=== PATIENT | female | born 1975 | race Caucasian/White ===

== ENCOUNTER → 2016-11-01 | Outpatient (CLI) | payer MEDICAID, BC ==
[2016-11-01 07:31] LABS: Basophils # (A) 0.1 k/uL (0-0.2); Basophils % (A) 1 %; CH 30.2; Eosinophils # (A) 0.1 k/uL (0-0.7); Eosinophils % (A) 1 %; HCT 44.5 % (34.0-46.0); HDW 2.49; HGB 14.3 gm/dL (11.4-16.0); Luc # (Auto) 0.17; Luc % (Auto) 3; Lymphocytes # (A) 2.4 k/uL (1.0-4.8); Lymphocytes % (A) 37 %; MCH 29.5 pg (25.0-35.0); MCHC 32.1 g/dL (31.0-37.0); MCV 91.8 fL (80.0-100.0); Mean Platelet Volume 7.7; Monocytes # (A) 0.5 k/uL (0-1.0); Monocytes % (A) 7 %; Neutrophils # (A) 3.3 k/uL (1.3-7.7); Neutrophils % (A) 51 %; RBC 4.85 m/uL (3.80-5.40); RDW 12.6 % (11.5-15.5); WBC 6.6 k/uL (3.8-10.6); WBC (Perox) 6.71
[2016-11-01 07:34] LABS: Anion Gap 11 mmol/L; Blood Urea Nitrogen 18 mg/dL (7-17); Carbon Dioxide 25 mmol/L (22-30); Chloride 105 mmol/L (98-107); Glucose 91 mg/dL (74-99); Non-African American GFR(MDRD) >60 (>60 ml/min/1.73 sqM); Potassium 4.7 mmol/L (3.5-5.1); Sodium 141 mmol/L (137-145)
== END | disposition home or self-care (01) ==
LOC: LABPAT 06:39
PROVIDERS: ATTEND Obstetrics & Gynecology
DX: Z01.812 Encounter for preprocedural laboratory examination (principal)
CPT/HCPCS: 36415; 80051; 82565; 82947; 84520; 85025; 86850; 86900; 86901; 87086

== ENCOUNTER 2016-11-10 06:31 | Day surgery (SDC) | payer MEDICAID, BC ==
[2016-11-01 11:34] VITALS: BMI 23.1
[~2016-11-10 06:31] MED LIST: DEXAMETHASONE SOD PHOSPHATE 10 MG/ML 1 ML VIAL IV ONE; FAMOTIDINE 20 MG/2 ML VIAL IV PRN; HYDROmorphone 1 MG/ML 1 ML SYRINGE IVP PRN; LACTATED RINGERS 1,000 ML IV SCH; LIDOCAINE 1% 20 ML VIAL (10MG/ML) FOR IV START INTRADERMA PRN; MIDAZOLAM 2 MG/2 ML VIAL IV PRN; ONDANSETRON 4 MG/2 ML VIAL IVP ONE; SCOPOLAMINE 1.5MG/72HR PATCH TRANSDERM ONE; ceFAZolin 2 GM in SODIUM CHLORIDE 0.9% 100 ML IVPB ONE
[2016-11-10] MEDS: LACTATED RINGERS 1,000 ML IV SCH ×2 (06:50→07:09)
[2016-11-10] MEDS ORDERED: SUCCINYLCHOLINE CHLORIDE 100 MG/5 ML SYR IV ONE (07:28)
[2016-11-10] MEDS ORDERED: MIDAZOLAM 2 MG/2 ML VIAL ONE (07:28)
[2016-11-10] MEDS ORDERED: KETOROLAC 30 MG/ML 1 ML VIAL ONE (07:28)
[2016-11-10] MEDS ORDERED: NEOSTIGMINE 1 MG/ML 10 ML VIAL ONE (07:28)
[2016-11-10] MEDS ORDERED: ROCURONIUM BROMIDE 10 MG/ML 10 ML VIAL IV ONE (07:28)
[2016-11-10] MEDS ORDERED: PROPOFOL 10 MG/ML 20 ML VIAL IV ONE (07:28)
[2016-11-10] MEDS ORDERED: HYDROmorphone (PF) 1 MG/ML ONE (07:28)
[2016-11-10] MEDS ORDERED: LIDOCAINE 1% INJ 10MG/ML (20 ML MDV) ONE (07:28)
[2016-11-10] MEDS ORDERED: fentaNYL (PF) 50 MCG/ML 2 ML AMP ONE (07:28)
[2016-11-10] MEDS ORDERED: GLYCOPYRROLATE 0.2 MG/ML 2 ML VIAL ONE (07:28)
[2016-11-10] MEDS ORDERED: BUPIVACAINE (PF) 0.25% 30 ML VIAL SQ ONE ×2 (07:52)
[2016-11-10] MEDS ORDERED: CELLULOSE,OXIDIZED 1 EACH EACH MISCELLANE ONE (08:36)
--- NOTE | 2016-11-10 09:12 | P.OP ---
Date of Procedure: 11/10/16 Preoperative Diagnosis: Left ovarian cyst and pelvic pain Postoperative Diagnosis: Same Procedure(s) Performed: Robotic-assisted laparoscopic bilateral salpingo-oophorectomy Anesthesia: DIANNA Surgeon: Anai Smith Estimated Blood Loss (ml): 20 IV fluids (ml): 800 Urine output (ml): 75 Pathology: other (Bilateral fallopian tubes and ovaries) Condition: stable Disposition: PACU Indications for Procedure: Persistent 4 cm left ovarian cyst consistent with endometrioma and chronic pelvic pain. Operative Findings: Approximately 5 cm left ovarian endometrioma adherent to the left posterior uterine cornua and left ovarian fossa. Normal-appearing right fallopian tube and ovary. Description of Procedure: After the patient and her family were met in the preoperative holding area and all questions were answered, she was taken to the operating room where anesthetic was administered without incident. She was in positioned, prepped and draped in the dorsal low lithotomy position. Positioning was tested in steep Trendelenburg position and was found to be adequate. A Rider catheter was then placed in the bladder and an acorn uterine manipulator was placed in the uterus. Attention was then turned to the abdomen. A 7 mm supraumbilical skin incision was made. The abdomen was grasped and elevated. The blade less optical trocar was utilized to introduce the camera under direct visualization to the peritoneal cavity without difficulty. The abdomen was insufflated with CO2 gas to a total filling pressure of 15 mm. All skin incisions were closed in a subcu cutaneous fashion with 4-0 Vicryl suture. Quarter percent Marcaine was infused into each incision for analgesia. Dressing was applied. The Rider catheter and acorn uterine manipulator were removed. No active vaginal bleeding was noted. The patient was awoken from anesthetic and transported to the recovery area in stable condition. The patient was then placed in steep Trendelenburg. Under direct visualization a right 7 mm robotic port was placed. A left lateral robotic 7 mm port as well as a 10 mm medical research assistant port were also placed under direct visualization. The bowel was swept out of the pelvis using a blunt probe. The above findings were noted. The rest the procedure was completed at the robotic console. Metzenbaum monopolar cautery instrument was in the #1 port and Yee bipolar graspers were in the #2 port. The left ovary was noted to be adherent to the left ovarian fossa and some bowel mesentery as well as the cornua of the uterus. This was dissected away using sharp and blunt dissection. Once the infundibulopelvic ligament was adequately visualized and was sequentially cauterized and cut. Further dissection of posterior adhesions was undertaken carefully and sharply. The adhesions to the cornual region of the uterus were sequentially cauterized and cut. This freed the entire specimen. There were adherent areas of ovarian tissue in the ovarian fossa which were delicately dissected away and removed. Attention was then turned to the right ovary. The right infundibulopelvic ligament was identified and was sequentially cauterized and cut adjacent to the ovary. The tubo-ovarian pedicle was then sequentially cauterized and cut thus freeing the right fallopian tube and ovary completely. The posterior cul-de- sac was then inspected and there were filmy adhesions noted these were sharply taken down. There were 2 surgical clips noted and these were removed. An Endo Catch bag was introduced into the pelvis and in the specimens were placed into the bag. A piece of Interceed was then placed over the left adnexal surgical site as an adhesion barrier after the area was checked for hemostasis and suction irrigated. The course of the right ureter was easily visualized and noted to be peristalsing. The left ureter was visualized at the pelvic brim and noted to be peristalsing. The robotic device was undocked from the laparoscopic ports. Under direct visualization the Endo Catch bag was brought to the incision and the ovaries were removed in a piecemeal fashion allowing for eventual removal of the entire Endo Catch bag and surgical specimen. The pelvis was reinspected and no active bleeding was noted. Camera and laparoscopic ports were then removed after the abdomen was desufflated of CO2 gas.
[2016-11-10 09:19] VITALS: TEMP 97.4
[2016-11-10 09:55] VITALS: RESP 16
[2016-11-10 12:33] VITALS: BP 95/57; PULSE 76
== END 2016-11-10 14:21 | disposition home or self-care (01) ==
LOC: OR 06:31
PROVIDERS: ATTEND Obstetrics & Gynecology
DX: N80.1 Endometriosis of ovary (principal); G89.29 Other chronic pain; Z88.2 Allergy status to sulfonamides; Z79.3 Long term (current) use of hormonal contraceptives
CPT/HCPCS: 58661; S2900; 81025; 86850; 86900; 86901; 88305; 88307

== ENCOUNTER → 2016-12-15 | Outpatient (CLI) | payer MEDICAID, BC ==
--- NOTE | 2016-12-15 10:29 | CT ---
EXAMINATION TYPE: CT abdomen pelvis wo/w con DATE OF EXAM: 12/15/2016 9:57 AM HISTORY: Patient has no complaints at time of service. Follow up study for known liver mass. Prior a bnormal CT. CT DLP: 683.1mGycm Automated Exposure Control for Dose Reduction was Utilized. CONTRAST: CT scan of the abdomen and pelvis is performed with oral and without and with IV Contrast, patient in jected with 100 mL of Omnipaque 300. Liver mass protocol. COMPARISON: CT abdomen and pelvis November 25, [address] September 27, 2015 FINDINGS: LUNG BASES: No significant abnormality is appreciated. LIVER/GB: Several small simple appearing cysts are redemonstrated scattered throughout the liver. The re is redemonstration of a well-circumscribed oval mass in the right hepatic lobe near level of gallb ladder fossa that is slightly hypodense relative to remainder of liver on noncontrast images. Immedia te postcontrast images show heterogeneous hypervascular enhancement relative to remainder of liver. L esion appears more isodense to the remainder of liver on delayed phased images. There is suggestion o f central linear nonenhancement or scar. Lesion measures roughly 4.0 x 3.3 cm on axial image 19 stabl e from prior exams. No new intrahepatic lesions are seen. PANCREAS: No significant abnormality is seen. SPLEEN: No significant abnormality is seen. ADRENALS: No significant abnormality is seen. KIDNEYS: A few simple appearing subcentimeter cysts are redemonstrated scattered throughout the right kidney BOWEL: No significant abnormality is seen. UTERUS/ADNEXA: Uterus is slightly retroverted in shape. No suspicious adnexal masses are seen on curr ent study. LYMPH NODES: No greater than 1cm abdominal or pelvic lymph nodes are appreciated. OSSEOUS STRUCTURES: No significant abnormality is seen. OTHER: No significant additional abnormality is seen. IMPRESSION: Solid 4.0 cm lesion in liver redemonstrated unchanged in size from prior exams. Different ial includes FNH versus hepatic adenoma. Adenoma is slightly favored. No new suspicious lesions are i dentified.
== END | disposition home or self-care (01) ==
LOC: RADCTMAIN 08:59
PROVIDERS: ATTEND Family Medicine
DX: K76.9 Liver disease, unspecified (principal)
CPT/HCPCS: 74178; Q9967

== ENCOUNTER → 2017-01-05 | Outpatient (CLI) | payer MEDICAID, BC ==
--- NOTE | 2017-01-06 10:33 | MM ---
Reason for exam: screening (asymptomatic). Last mammogram was performed 1 year and 3 months ago. History: Patient is postmenopausal and is nulliparous. Benign excisional biopsy, 2011. Benign US RT VAD breast biopsy of the right breast, October 11, 2011. Took hormonal contraceptives for 10 years beginning at age 20. Taking estrogen for 4 months beginning at age 41. Taking progesterone for 4 months beginning at age 41. Physical Findings: A clinical breast exam by your physician is recommended on an annual basis and results should be correlated with mammographic findings. MG 3D Screening Mammo W/Cad Bilateral CC and MLO view(s) were taken. Prior study comparison: October 09, 2015, bilateral MG 3d screening mammo w/cad. October 11, 2011, right breast diagnostic digital diandra. The breast tissue is heterogeneously dense. This may lower the sensitivity of mammography. Asymmetric breast tissue in the right breast. This finding is changed when compared with previous exams. ASSESSMENT: Incomplete: need additional imaging evaluation, BI-RAD 0 RECOMMENDATION: Special view mammogram of the right breast. If lesion persists on supplemental views, image directed ultrasound is recommended. [facility] will attempt to contact patient to return for supplemental views and ultrasound if indicated.
== END | disposition home or self-care (01) ==
LOC: RADMAMWWP 16:21
PROVIDERS: ATTEND Obstetrics & Gynecology
DX: Z12.31 Encounter for screening mammogram for malignant neoplasm of breast (principal)
CPT/HCPCS: 77063; G0202

== ENCOUNTER → 2017-01-12 | Outpatient (CLI) | payer MEDICAID, BC ==
--- NOTE | 2017-01-12 11:28 | MM ---
Reason for exam: additional evaluation requested from abnormal screening. Last mammogram was performed less than 1 month ago. History: Patient is postmenopausal and is nulliparous. Benign excisional biopsy, 2011. Benign US RT VAD breast biopsy of the right breast, October 11, 2011. Took hormonal contraceptives for 10 years beginning at age 20. Taking estrogen for 4 months beginning at age 41. Taking progesterone for 4 months beginning at age 41. Physical Findings: Nurse did not find any significant physical abnormalities on exam. MG 3D Work Up W/Cad RT LM, spot compression CC, and spot compression MLO view(s) were taken of the right breast. Prior study comparison: January 05, 2017, bilateral MG 3d screening mammo w/cad. October 09, 2015, bilateral MG 3d screening mammo w/cad. September 26, 2012, breast ultrasound, performed at [facility]. The breast tissue is heterogeneously dense. This may lower the sensitivity of mammography. There is distortion from prior excisional biopsy. No definite lesion seen. These results were verbally communicated with the patient and result sheet given to the patient on 01/12/17. ASSESSMENT: Benign, BI-RAD 2 RECOMMENDATION: Return to routine screening mammogram schedule for both breasts.
== END | disposition home or self-care (01) ==
LOC: RADMAMWWP 10:19
PROVIDERS: ATTEND Obstetrics & Gynecology
DX: R92.8 Other abnormal and inconclusive findings on diagnostic imaging of breast (principal)
CPT/HCPCS: G0206; G0279

== ENCOUNTER → 2018-01-04 | Outpatient (CLI) | payer MEDICAID, BC ==
[2018-01-04 17:22] LABS: DHEA Sulfate 195.7 ug/dL (26.0-430.0)
== END | disposition home or self-care (01) ==
LOC: LABWHC1 10:08
PROVIDERS: ATTEND Obstetrics & Gynecology
DX: E05.90 Thyrotoxicosis, unspecified without thyrotoxic crisis or storm (principal); Z78.0 Asymptomatic menopausal state; Z90.722 Acquired absence of ovaries, bilateral
CPT/HCPCS: 36415; 82627; 82670; 83001; 84403; 84443

== ENCOUNTER → 2018-03-01 | Outpatient (CLI) | payer MEDICAID, BC ==
--- NOTE | 2018-03-02 09:52 | MM ---
Reason for exam: screening (asymptomatic). Last mammogram was performed 1 year and 2 months ago. History: Patient is postmenopausal and is nulliparous. Benign excisional biopsy, 2011. Benign US RT VAD breast biopsy of the right breast, October 11, 2011. Took hormonal contraceptives for 10 years beginning at age 20. Taking estrogen for 4 months beginning at age 41. Taking progesterone for 4 months beginning at age 41. Physical Findings: A clinical breast exam by your physician is recommended on an annual basis and results should be correlated with mammographic findings. MG 3D Screening Mammo W/Cad Bilateral CC and MLO view(s) were taken. Prior study comparison: January 12, 2017, right breast MG 3d work up w/cad RT. January 05, 2017, bilateral MG 3d screening mammo w/cad. The breast tissue is heterogeneously dense. This may lower the sensitivity of mammography. There is chronic nodularity bilaterally. There is no dominant lesion. No significant changes when compared with prior studies. ASSESSMENT: Benign, BI-RAD 2 RECOMMENDATION: Routine screening mammogram of both breasts in 1 year.
== END | disposition home or self-care (01) ==
LOC: RADMAMWWP 09:23
PROVIDERS: ATTEND Obstetrics & Gynecology
DX: Z12.31 Encounter for screening mammogram for malignant neoplasm of breast (principal)
CPT/HCPCS: 77063; 77067

== ENCOUNTER → 2018-03-01 | Outpatient (CLI) | payer MEDICAID, BC ==
[2018-03-01 13:25] LABS: T4, Free (Free Thyroxine) 1.17 ng/dL (0.78-2.19)
[2018-03-01 19:53] LABS: Thyroid Peroxidase Antibodies 39.8 U/mL (0.0-60.0)
== END | disposition home or self-care (01) ==
LOC: LABWHC1 12:21
PROVIDERS: ATTEND Internal Medicine Endocrinology, Diabetes & Metabolism
DX: R94.6 Abnormal results of thyroid function studies (principal)
CPT/HCPCS: 36415; 84439; 84443; 84445; 84480; 86376

== ENCOUNTER → 2018-03-05 | Outpatient (CLI) | payer MEDICAID, BC ==
--- NOTE | 2018-03-05 13:42 | US ---
EXAMINATION TYPE: US thyroid st tissue head/neck DATE OF EXAM: 03/05/2018 COMPARISON: NONE CLINICAL HISTORY: R94.6 Abnormal thyroid function; hyperthyroidism per patient GLAND SIZE: Right Lobe: 4.3 x 1.7 x 1.4 cm Overall Parenchyma: homogenous Left Lobe: 4.3 x 1.6 x 1.2 cm Overall Parenchyma: homogeneous Isthmus Thickness: 0.3 cm NODULES RIGHT: # of nodules measured on right: 1 largest of multiple small areas with same appearance 1. 0.3 X 0.2 x 0.1 cm hypoechoic cystic nodule at the lower pole with well-defined margins. This n odule is wider than tall and shows no intranodular vascularity. Prior size: no prior US LEFT: # of nodules measured on left: 2 1. 0.6 X 0.3 x 0.4 cm hypoechoic mixed nodule at the mid pole with well-defined margins. This nodu le is taller than wide and shows no intranodular vascularity. 2. 0.3 X 0.3 x 0.1 cm hypoechoic cystic nodule at the lower pole with well-defined margins. This no dule is wider than tall and shows no intranodular vascularity. ISTHMUS: # of nodules measured in the isthmus: 0 Bilateral neck scanned, no evidence of lymphadenopathy. IMPRESSION: Subcentimeter thyroid nodules
== END | disposition home or self-care (01) ==
LOC: RADUSWWP 13:02
PROVIDERS: ATTEND Internal Medicine Endocrinology, Diabetes & Metabolism
DX: E04.2 Nontoxic multinodular goiter (principal)
CPT/HCPCS: 76536

== ENCOUNTER → 2018-03-08 | Outpatient (CLI) | payer MEDICAID, BC ==
--- NOTE | 2018-03-08 12:44 | MR ---
EXAMINATION TYPE: MR abdomen wo/w con DATE OF EXAM: 03/08/2018 COMPARISON: CT scan 09/27/2015, 11/25/2015, 12/15/2016 HISTORY: Abnormal findings on Liver CONTRAST: Standard multiplanar, multisequence MRI departmental protocol utilizing 5.5 mL intravenous Gadavist g adolinium contrast. FINDINGS: LIVER/GB: There is a 4.1 x 3.5 cm stable appearing mass within the right lobe of the liver. Retrospectively unc hanged in size from 2015 and therefore likely on a benign etiology such as FNH or hepatic adenoma. Approximately 6 hepatic cysts are seen scattered throughout the liver the largest within the posterio r segment right hepatic lobe measures approximately 1.1 cm. PANCREAS: No inflammation. No distinct mass. SPLEEN: No splenic enlargement. No lesion seen. ADRENALS: No nodule. No thickening. KIDNEYS/BLADDER: No hydronephrosis. No nephrolithiasis. Tiny subcentimeter simple renal cyst bilatera lly. OSSEOUS STRUCTURES: No significant abnormality is seen. OTHER: No significant additional abnormality is seen. IMPRESSION: Stable appearing hepatic lesion unchanged from 2015 and therefore likely benign. Most likely etiologi es would include FNH or hepatic adenoma.
== END ==
LOC: RADMRIMAIN 09:54
PROVIDERS: ATTEND Physician Assistant Medical
DX: R93.2 Abnormal findings on diagnostic imaging of liver and biliary tract (principal)
CPT/HCPCS: 74183; A9581

== ENCOUNTER → 2019-03-07 | Outpatient (CLI) | payer BC ==
--- NOTE | 2019-03-08 11:27 | MM ---
Reason for exam: screening (asymptomatic). Last mammogram was performed 1 year ago. History: Patient is postmenopausal and is nulliparous. Benign excisional biopsy, 2011. Benign US RT VAD breast biopsy of the right breast, October 11, 2011. Took hormonal contraceptives for 10 years beginning at age 20. Taking estrogen for 4 months beginning at age 41. Taking progesterone for 4 months beginning at age 41. Physical Findings: A clinical breast exam by your physician is recommended on an annual basis and results should be correlated with mammographic findings. MG 3D Screening Mammo W/Cad Bilateral CC and MLO view(s) were taken. Prior study comparison: March 01, 2018, bilateral MG 3d screening mammo w/cad. January 12, 2017, right breast MG 3d work up w/cad RT. The breast tissue is extremely dense which could obscure a lesion on mammography. No suspicious abnormality on the left breast. Right medial middle posterior depth distortion on 3D CC 44/55 suggesting superior correlate. ASSESSMENT: Incomplete: need additional imaging evaluation, BI-RAD 0 RECOMMENDATION: Special view mammogram of the right breast. If lesion persists on supplemental views, image directed ultrasound is recommended. [facility] will attempt to contact patient to return for supplemental views and ultrasound if indicated.
== END | disposition home or self-care (01) ==
LOC: RADMAMWWP 10:23
PROVIDERS: ATTEND Obstetrics & Gynecology
DX: Z12.31 Encounter for screening mammogram for malignant neoplasm of breast (principal)
CPT/HCPCS: 77063; 77067

== ENCOUNTER → 2019-03-14 | Outpatient (CLI) | payer BC ==
--- NOTE | 2019-03-14 11:13 | MM ---
Reason for exam: additional evaluation requested from abnormal screening. Last mammogram was performed less than 1 month ago. History: Patient is postmenopausal and is nulliparous. Benign excisional biopsy, 2011. Benign US RT VAD breast biopsy of the right breast, October 11, 2011. Took hormonal contraceptives for 10 years beginning at age 20. Taking estrogen for 4 months beginning at age 41. Taking progesterone for 4 months beginning at age 41. Physical Findings: Nurse did not find any significant physical abnormalities on exam. MG 3D Work Up W/Cad RT Spot compression CC and LM view(s) were taken of the right breast. Prior study comparison: March 07, 2019, bilateral MG 3d screening mammo w/cad. March 01, 2018, bilateral MG 3d screening mammo w/cad. The breast tissue is heterogeneously dense. This may lower the sensitivity of mammography. No suspicious abnormality. Right breast distortion correlates with site of prior excision, benign. These results were verbally communicated with the patient and result sheet given to the patient on 03/14/19. ASSESSMENT: Benign, BI-RAD 2 RECOMMENDATION: Return to routine screening mammogram schedule for both breasts.
== END | disposition home or self-care (01) ==
LOC: RADMAMWWP 10:19
PROVIDERS: ATTEND Obstetrics & Gynecology
DX: R92.8 Other abnormal and inconclusive findings on diagnostic imaging of breast (principal)
CPT/HCPCS: 77061; 77065

== ENCOUNTER → 2019-12-26 | Outpatient (CLI) | payer BC ==
--- NOTE | 2019-12-26 15:11 | US ---
EXAMINATION TYPE: US thyroid st tissue head/neck DATE OF EXAM: 12/26/2019 COMPARISON: 03/05/2018 CLINICAL HISTORY: E079 DISORDER OF THYROID,E042 MULTINODULAR GOITER. GLAND SIZE: Right Lobe: 4.8 x 1.2 x 1.7 cm Overall Parenchyma: homogenous Left Lobe: 4.2 x 1.1 x 1.8 cm Overall Parenchyma: homogeneous Isthmus Thickness: 0.3 cm NODULES RIGHT: # of nodules measured on right: 0 LEFT: # of nodules measured on left: 1 1.) 0.6 x 0.4 x 0.6cm hypoechoic, solid nodule, at the mid pole, this nodule is wider than tall with vascularity and well defined borders. This previously measured 0.6 x 0.3 x 0.4 cm on the exam of 03/05 ISTHMUS: # of nodules measured in the isthmus: 0 Subcentimeter nodules noted bilaterally. Bilateral neck scanned, no evidence of lymphadenopathy. IMPRESSION: Very minimal interval growth of the solid left thyroid nodule, remaining subcentimeter. T his is too small for fine-needle aspiration at this time and follow-up ultrasound is recommended in 1 2 months to assess for any further interval growth.
== END | disposition home or self-care (01) ==
LOC: RADUSWWP 14:15
PROVIDERS: ATTEND Family Medicine
DX: E04.1 Nontoxic single thyroid nodule (principal)
CPT/HCPCS: 76536

== ENCOUNTER → 2020-05-14 | Outpatient (CLI) | payer BC ==
--- NOTE | 2020-05-21 09:57 | MM ---
Reason for exam: screening (asymptomatic). Last mammogram was performed 1 year and 2 months ago. History: Patient is postmenopausal and is nulliparous. Benign excisional biopsy, 2011. Benign US RT VAD breast biopsy of the right breast, October 11, 2011. Took hormonal contraceptives for 10 years beginning at age 20. Taking estrogen for 4 months beginning at age 41. Taking progesterone for 4 months beginning at age 41. Physical Findings: A clinical breast exam by your physician is recommended on an annual basis and results should be correlated with mammographic findings. MG 3D Screening Mammo W/Cad Bilateral CC and MLO view(s) were taken. Prior study comparison: March 14, 2019, right breast MG 3d work up w/cad RT. March 07, 2019, bilateral MG 3d screening mammo w/cad. The breast tissue is extremely dense which could obscure a lesion on mammography. Anterior right CC subareolar asymmetric density incompletely disperses on 3D and is more defined from prior. ASSESSMENT: Incomplete: need additional imaging evaluation, BI-RAD 0 RECOMMENDATION: Special view mammogram of the right breast. (3D) If lesion persists on supplemental views, image directed ultrasound is recommended. [facility] will attempt to contact patient to return for supplemental views and ultrasound if indicated.
== END | disposition home or self-care (01) ==
LOC: RADMAMWWP 10:54
PROVIDERS: ATTEND Obstetrics & Gynecology
DX: Z12.31 Encounter for screening mammogram for malignant neoplasm of breast (principal)
CPT/HCPCS: 77063; 77067

== ENCOUNTER → 2020-06-04 | Outpatient (CLI) | payer BC ==
--- NOTE | 2020-06-04 11:23 | MM ---
Reason for exam: additional evaluation requested from abnormal screening. Last mammogram was performed 1 month ago. History: Patient is postmenopausal and is nulliparous. Benign excisional biopsy, 2011. Benign US RT VAD breast biopsy of the right breast, October 11, 2011. Took hormonal contraceptives for 10 years beginning at age 20. Taking estrogen for 4 years beginning at age 41. Taking progesterone for 4 years beginning at age 41. Physical Findings: Nurse did not find any significant physical abnormalities on exam. MG 3D Work Up W/Cad RT Spot compression CC, LM, CCRM, and CCRL view(s) were taken of the right breast. Prior study comparison: May 14, 2020, bilateral MG 3d screening mammo w/cad. March 14, 2019, right breast MG 3d work up w/cad RT. The breast tissue is heterogeneously dense. This may lower the sensitivity of mammography. These results were verbally communicated with the patient and result sheet given to the patient on 06/04/20. ASSESSMENT: Probably benign, BI-RAD 3 RECOMMENDATION: Follow-up diagnostic mammogram of the right breast in 6 months.
== END | disposition home or self-care (01) ==
LOC: RADMAMWWP 10:16
PROVIDERS: ATTEND Obstetrics & Gynecology
DX: R92.8 Other abnormal and inconclusive findings on diagnostic imaging of breast (principal)
CPT/HCPCS: 77061; 77065

== ENCOUNTER → 2020-12-17 | Outpatient (CLI) | payer BC ==
--- NOTE | 2020-12-17 11:11 | MM ---
Reason for exam: follow-up at short interval from prior study. Last mammogram was performed 6 months ago. History: Patient is postmenopausal and is nulliparous. Benign excisional biopsy, 2011. Benign US RT VAD breast biopsy of the right breast, October 11, 2011. Took hormonal contraceptives for 10 years beginning at age 20. Taking estrogen for 4 years beginning at age 41. Taking progesterone for 4 years beginning at age 41. Took other hormone for 6 months. Physical Findings: Nurse did not find any significant physical abnormalities on exam. MG 3D Diag Mammo W/Cad RT CC and MLO view(s) were taken of the right breast. Prior study comparison: June 04, 2020, right breast MG 3d work up w/cad RT. May 14, 2020, bilateral MG 3d screening mammo w/cad. The breast tissue is extremely dense which could obscure a lesion on mammography. There is no discrete abnormality. No significant new findings when compared with previous films. These results were verbally communicated with the patient and result sheet given to the patient on 12/17/20. ASSESSMENT: Benign, BI-RAD 2 RECOMMENDATION: Return to routine screening mammogram schedule for both breasts. Back on schedule.
== END | disposition home or self-care (01) ==
LOC: RADMAMWWP 10:19
PROVIDERS: ATTEND Obstetrics & Gynecology
DX: R92.8 Other abnormal and inconclusive findings on diagnostic imaging of breast (principal)
CPT/HCPCS: 77061; 77065

== ENCOUNTER → 2021-08-05 | Outpatient (CLI) | payer BC ==
--- NOTE | 2021-08-06 10:57 | MM ---
Reason for exam: screening (asymptomatic). Last mammogram was performed 8 months ago. History: Patient is postmenopausal and is nulliparous. Benign excisional biopsy, 2011. Benign US RT VAD breast biopsy of the right breast, October 11, 2011. Took hormonal contraceptives for 10 years beginning at age 20. Taking estrogen for 4 years beginning at age 41. Taking progesterone for 4 years beginning at age 41. Took other hormone for 6 months. Physical Findings: A clinical breast exam by your physician is recommended on an annual basis and results should be correlated with mammographic findings. MG 3D Screening Mammo W/Cad Bilateral CC and MLO view(s) were taken. Prior study comparison: December 17, 2020, right breast MG 3d diag mammo w/cad RT. May 14, 2020, bilateral MG 3d screening mammo w/cad. March 07, 2019, bilateral MG 3d screening mammo w/cad. The breast tissue is extremely dense which could obscure a lesion on mammography. There are benign appearing round calcifications in the left breast. There is no discrete abnormality. ASSESSMENT: Negative, BI-RAD 1 RECOMMENDATION: Routine screening mammogram of both breasts in 1 year.
== END | disposition home or self-care (01) ==
LOC: RADMAMWWP 10:59
PROVIDERS: ATTEND Obstetrics & Gynecology
DX: Z12.31 Encounter for screening mammogram for malignant neoplasm of breast (principal); Z78.0 Asymptomatic menopausal state
CPT/HCPCS: 77063; 77067

== ENCOUNTER → 2022-03-07 | Outpatient (CLI) | payer BC ==
--- NOTE | 2022-03-08 08:34 | XR ---
EXAMINATION TYPE: XR wrist complete RT DATE OF EXAM: 03/07/2022 COMPARISON: None HISTORY: Pain in scaphoid area TECHNIQUE: 4 view right wrist FINDINGS: No acute fracture or dislocation is evident. Joint spaces are preserved. Soft tissues are n ormal. Follow up exams can be performed 7-10 days from acute trauma for continued pain. MRI is available if additional evaluation of the scaphoid or soft tissues would be of benefit. IMPRESSION: 1. No acute osseous abnormality right wrist
== END | disposition home or self-care (01) ==
LOC: RADXRYALE 16:47
PROVIDERS: ATTEND Physician Assistant Medical
DX: M25.531 Pain in right wrist (principal)

== ENCOUNTER → 2022-08-25 | Outpatient (CLI) | payer BC ==
--- NOTE | 2022-08-26 08:06 | MM ---
Reason for Exam: Screening (asymptomatic). Last mammogram was performed 1 year(s) and 1 month(s) ago. Patient History: Menarche at age 12. Patient has no children. Left ovary removed at age 41. Right ovary removed at age 41. Postmenopausal. Currently using Estrogen, beginning at age 41 for 4 years. Currently using Progesterone, beginning at age 41 for 4 years. Hormonal Contraceptives for 10 years from age 20 until age 35. Benign Excisional Biopsy. 10/11/2011, Benign Core Biopsy on the right side. Risk Values: Bertha 5 year model risk: 2.5%. NCI Lifetime model risk: 17.4%. Prior Study Comparison: 06/04/2020 Right Diagnostic Mammogram, [facility] WITH [facility]. 12/17/2020 Right Diagnostic Mammogram, [facility]. 08/05/2021 Bilateral Screening Mammogram, [facility] WITH [facility]. Tissue Density: The breast tissue is extremely dense which could obscure a lesion on mammography. Findings: Analyzed By CAD. There is no suspicious group of microcalcifications or new suspicious mass in either breast. Overall Assessment: Negative, BI-RAD 1 Management: Screening Mammogram of both breasts in 1 year. A clinical breast exam by your physician is recommended on an annual basis and results should be correlated with mammographic findings. [facility] will attempt to contact patient to return for supplemental views and ultrasound if indicated. Electronically signed and approved by: Cali Torres DO
== END | disposition home or self-care (01) ==
LOC: RADMAMWWP 09:17
PROVIDERS: ATTEND Obstetrics & Gynecology
DX: Z12.31 Encounter for screening mammogram for malignant neoplasm of breast (principal); Z78.0 Asymptomatic menopausal state; Z98.890 Other specified postprocedural states
CPT/HCPCS: 77063; 77067

== ENCOUNTER 2022-11-15 07:48 | Day surgery (SDC) | payer BC ==
[~2022-11-15 07:48] MED LIST changes: -DEXAMETHASONE SOD PHOSPHATE 10 MG/ML 1 ML VIAL IV ONE; -FAMOTIDINE 20 MG/2 ML VIAL IV PRN; -HYDROmorphone 1 MG/ML 1 ML SYRINGE IVP PRN; -LIDOCAINE 1% 20 ML VIAL (10MG/ML) FOR IV START INTRADERMA PRN; -MIDAZOLAM 2 MG/2 ML VIAL IV PRN; -ONDANSETRON 4 MG/2 ML VIAL IVP ONE; -SCOPOLAMINE 1.5MG/72HR PATCH TRANSDERM ONE; -ceFAZolin 2 GM in SODIUM CHLORIDE 0.9% 100 ML IVPB ONE
[2022-11-15 08:04] VITALS: RESP 16; TEMP 98.3
[2022-11-15] MEDS ORDERED: PROPOFOL 10 MG/ML 20 ML VIAL IV ONE (08:38)
--- NOTE | 2022-11-15 08:41 | P.GSHP ---
History of Present Illness H&P Date: 11/15/22 Chief Complaint: Colon cancer screening 47 yo female here today for screening colonoscopy. Family history of colon polyps in her mother and brother. She has not had a colonoscopy before. No bowel complaints. Past Medical History Past Medical History: No Reported History Additional Past Medical History / Comment(s): ENDOMETRIOMA History of Any Multi-Drug Resistant Organisms: None Reported Past Surgical History: Appendectomy, Breast Surgery Additional Past Surgical History / Comment(s): right breast lumpectomy, ovaries removed 2016. Past Anesthesia/Blood Transfusion Reactions: Motion Sickness Additional Past Anesthesia/Blood Transfusion Reaction / Comment(s): no blood transfusions Smoking Status: Never smoker - Past Family History Father Family Medical History: No Reported History Mother Family Medical History: No Reported History Medications and Allergies Home Medications Medication Instructions Recorded Confirmed Type Progesterone, Micronized 200 mg PO DAILY 11/10/22 11/15/22 History [Progesterone] Testosterone Cream 2mg 1 applicate TOPICAL DAILY 11/10/22 11/15/22 History Unk Fish Oil 1 tab PO DAILY 11/10/22 11/10/22 History Unk Magnesium 1 tab PO DAILY 11/10/22 11/15/22 History Unk Multi Vitamin 1 tab PO DAILY 11/10/22 11/10/22 History Unk Vitamin B Complex 1 tab PO DAILY 11/10/22 11/15/22 History Unk Vitamin C 1 tab PO DAILY 11/10/22 11/15/22 History Unk Vitamin D3 1 tab PO DAILY 11/10/22 11/15/22 History Unk Vitamin For Hair 1 tab PO DAILY 11/10/22 11/10/22 History estradioL [Climara 0.05 MG] 1 patch TRANSDERM TUSA 11/10/22 11/15/22 History Allergies Allergy/AdvReac Type Severity Reaction Status Date / Time Sulfa (Sulfonamide Allergy Rash/Hives Verified 11/15/22 08:01 Antibiotics) Surgical - Exam Vital Signs Temp Pulse Resp BP Pulse Ox 98.3 F 98 16 104/68 98 11/15/22 08:03 11/15/22 08:03 11/15/22 08:03 11/15/22 08:03 11/15/22 08:03 Physical exam: General: Well-developed, well-nourished HEENT: Normocephalic, sclerae nonicteric Abdomen: Nontender, nondistended Extremities: No edema Neuro: Alert and oriented Assessment and Plan (1) Colon cancer screening Narrative/Plan: Will proceed with colonoscopy at this time. Current Visit: Yes Status: Acute Code(s): Z12.11 - ENCOUNTER FOR SCREENING FOR MALIGNANT NEOPLASM OF COLON SNOMED Code(s): 582823387
--- NOTE | 2022-11-15 09:18 | P.PCN ---
Date of Procedure: 11/15/22 Procedure(s) Performed: PREOPERATIVE DIAGNOSIS: Colon cancer screening POSTOPERATIVE DIAGNOSIS: Tortuous colon PROCEDURE: Colonoscopy ANESTHESIA: MAC SURGEON: Anibal Harvey M.D. SPECIMENS: None ENDOSCOPIC PROCEDURE: The patient was placed on the endoscopy table in the left decubitus position. The Olympus colonoscope was inserted into the anus and passed under direct visualization to the base of the cecum. The appendiceal orifice was visualized. From that point the scope was slowly withdrawn inspe cting all surfaces carefully. There were no neoplastic inflammatory or polypoid lesions throughout the cecum, ascending, transverse, descending, sigmoid and rectum. There was no visible diverticulosis noted. Digital rectal examination was normal. The patient was taken to the recovery room in stable condition per anesthesia guidelines. RECOMMENDATIONS: Resume diet. Repeat colonoscopy in 10 years.
[2022-11-15 09:35] VITALS: BP 95/64; PULSE 63
== END 2022-11-15 09:58 | disposition home or self-care (01) ==
LOC: ORWHC2ENDO 07:48
PROVIDERS: ATTEND Surgery
DX: Z12.11 Encounter for screening for malignant neoplasm of colon (principal); K56.2 Volvulus; N80.9 Endometriosis, unspecified; Z90.49 Acquired absence of other specified parts of digestive tract; Z98.82 Breast implant status; Z79.899 Other long term (current) drug therapy; Z88.2 Allergy status to sulfonamides; T75.3XXD Motion sickness, subsequent encounter
CPT/HCPCS: 45378; J2704

== ENCOUNTER → 2023-03-13 | Outpatient (CLI) | payer BC ==
--- NOTE | 2023-03-13 09:08 | XR ---
EXAMINATION TYPE: XR thoracic spine complete DATE OF EXAM: 03/13/2023 CLINICAL HISTORY: pain TECHNIQUE: Frontal, lateral, and swimmer's view of thoracic spine are obtained. COMPARISON: None. FINDINGS: Thoracic spine show satisfactory alignment without evidence of acute fracture or dislocatio n. Vertebral body heights are preserved. Disc spaces are well preserved. Visualized ribs are unrem arkable. IMPRESSION: No acute fracture or dislocation is seen in the thoracic spine. ICD 10 NO FRACTURE, INIT IAL EVALUATION
== END | disposition home or self-care (01) ==
LOC: RADXRYALE 08:39
PROVIDERS: ATTEND Physician Assistant Medical
DX: M54.6 Pain in thoracic spine (principal)
CPT/HCPCS: 72072

== ENCOUNTER → 2023-11-09 | Outpatient (CLI) | payer BC ==
--- NOTE | 2023-11-10 20:13 | MM ---
Reason for Exam: Screening (asymptomatic). Last mammogram was performed 1 year(s) and 2 month(s) ago. Patient History: Menarche at age 12. Patient has no children. Left ovary removed at age 41. Right ovary removed at age 41. Postmenopausal. Currently using Estrogen, beginning at age 41 for 4 years. Currently using Progesterone, beginning at age 41 for 4 years. Hormonal Contraceptives for 10 years from age 20 until age 35. Benign Excisional Biopsy. 10/11/2011, Benign Core Biopsy on the right side. Risk Values: Bertha 5 year model risk: 2.3%. NCI Lifetime model risk: 17.0%. Prior Study Comparison: 12/17/2020 Right Diagnostic Mammogram, [facility]. 08/05/2021 Bilateral Screening Mammogram, [facility]. 08/25/2022 Bilateral MG 3D screening mammo w/cad, [facility]. Tissue Density: The breast tissue is extremely dense which could obscure a lesion on mammography. Findings: Analyzed By CAD. Unchanged global asymmetry medial right breast. There is no suspicious group of microcalcifications or new suspicious mass in either breast. Overall Assessment: Benign, BI-RAD 2 Management: Screening Mammogram of both breasts in 1 year. . Patient should continue monthly self-breast exams. A clinical breast exam by your physician is recommended on an annual basis. This exam should not preclude additional follow-up of suspicious palpable abnormalities. Note on Bertha scores and lifetime risk: 1. A Bertha score greater than 3% is considered moderate risk. If this is the case, consider specialist referral to assess eligibility for a risk reducing agent. 2. If overall lifetime risk for the development of breast cancer is 20% or higher, the patient may qualify for future screening with alternating mammogram and breast MRI. Electronically signed and approved by: Issa Jordan M.D. Radiologist
== END | disposition home or self-care (01) ==
LOC: RADMAMWWP 10:10
PROVIDERS: ATTEND Obstetrics & Gynecology
DX: Z12.31 Encounter for screening mammogram for malignant neoplasm of breast (principal); Z78.0 Asymptomatic menopausal state
CPT/HCPCS: 77063; 77067

== ENCOUNTER → 2024-07-25 | Outpatient (CLI) | payer BC ==
--- NOTE | 2024-07-25 09:20 | MR ---
EXAMINATION TYPE: MR thoracic spine wo con DATE OF EXAM: 07/25/2024 9:12 AM CLINICAL INDICATION: Female, 49 years old with history of M54.6 PAIN IN THORACIC SPINE; PHH, Lump lef t of T-spine near t4-5 area, Pain in area, marker on area of interest COMPARISON: No priors. TECHNIQUE: Multi planar, multi sequence imaging was performed utilizing: T1-weighted, short-tau inver joselin recovery and T2-weighted of the thoracic spine. IV Contrast: (none if empty) FINDINGS: Alignment: Alignment is within normal limits. Vertebral bodies have preserved heights. Spinal cord: Spinal cord is within normal limits for signal. Discs: Intervertebral disc signal is maintained. No evidence of significant spinal canal or neural fo raminal stenosis. There is no evidence of extradural defects or central spinal canal narrowing at any thoracic vertebral body level Osseous structures: No abnormal bony edema on inversion recovery sequences. Multilevel osteophyte for mation and facet joint arthropathy. Scattered disc space narrowing. High T1 high T2 signal within the T2 vertebral body likely representing vertebral body hemangioma. Area of concern on the left is not correlate with any underlying abnormality. Patient may be feeling a rib. IMPRESSION: 1. Area of concern on the left back demonstrates no suspicious mass or adenopathy. 2. No evidence for significant spinal canal or neural from stenosis. Soccer signal is maintained. [facility], , 07/25/2024 9:17 AM
== END | disposition home or self-care (01) ==
LOC: RADMRIMAIN 08:03
PROVIDERS: ATTEND Family Medicine
DX: M54.6 Pain in thoracic spine (principal)
CPT/HCPCS: 72146